=== PATIENT | male | born 1955 | race Caucasian/White ===

== ENCOUNTER 2017-03-25 13:03 | Inpatient (IN) | payer OTHER, MEDICARE ==
[~2017-03-25] VITALS: Ht 172.7 cm; Wt 84.4 kg
[~2017-03-25 13:03] MED LIST: ACTO30TA10 PO; AMLO5TAB2 PO; CITA20TA4 PO; GABA400C5 PO; GLUC4CHW CHEW; IBUP800T23 PO; LOSA50TA PO; METF1000 PO; TRAZ150T75 PO
[2017-03-25 13:30] VITALS: BP 145/78; PULSE 56; RESP 27; TEMP 97.8; O2SAT 98
[2017-03-25 14:00] VITALS: PULSE 56
[2017-03-25] MEDS: SODIUM CHLOR 0.9% 1000 ML INJ 1,000 ML IV SCH (14:05)
[2017-03-25] MEDS ORDERED: RESP: ALBUTEROL 2.5 MG/IPRATROPIUM 0.5 MG NEB (PRN) INH (14:15)
[2017-03-25] MEDS ORDERED: MISCELLANEOUS NURSING INFORMATION XX SCH (14:15)
[2017-03-25] MEDS ORDERED: CHLORHEXIDINE GLUCONATE 2 % 1 PACK (2 CLOTHS) TOP PRN (14:15)
--- NOTE | 2017-03-25 14:15 | HHI.HP ---
HPI Service Critical Care Medicine Primary Care Physician Non-Staff Admission Diagnosis Diagnosis: (1) Acute right arterial ischemic stroke, MCA (middle cerebral artery) Diagnosis: Principal (2) Type 2 diabetes mellitus Diagnosis: Secondary (3) Hypertension Diagnosis: Secondary (4) Tobacco abuse Diagnosis: Secondary (5) Renal failure Diagnosis: Secondary Chief Complaint: Acute R MCA ischemic stroke Travel History International Travel<30 Days: No Contact w/Intl Traveler <30 Da: No Traveled to Known Affected Are: No History of Present Illness Patient is a 62-year-old male with past medical history significant for type 2 diabetes poorly controlled, hypertension, tobacco abuse, possible history of TIA in the past who presented to the [place] emergency department with numbness and weakness to his left lower face, left arm, left leg starting about 2 hours prior to presentation. He gives a history of TIAs in the past. He is supposed to be on a baby aspirin but has not taken that recently. His blood pressure was 146/75. CT of the head was negative. Patient was evaluated by Dr. Melchor in the ED. After discussion with neurology Dr. Hernandez patient was deemed a good candidate for TPA. Patient was started on IV TPA per protocol and was transferred to [facility]. I evaluated the patient in the ICU. His left face numbness has started to resolve, otherwise he has 4 out of 5 power in the left upper extremity and lower extremity. NIH stroke scale was 6 similar to presentation, but TPA still infusing. Neurology Dr. Hernandez Review of Systems ROS Limitations: Other (as per HPI) Past Family Social History Allergies: Coded Allergies: Penicillin (Verified Allergy, Severe, 03/25/17) Uncoded Allergies: OPIODS (Allergy, Severe, Anaphylaxis, 03/25/17) Past Medical History Type 2 diabetes Hypertension Chronic back pain Tobacco abuse Past Surgical History Cholecystectomy Perry fundoplication Reported Medications Losartan (Losartan Potassium) 50 Mg Tab 50 Mg PO DAILY Glucose (Dextrose) 4 Gm Chew 4 Gm CHEW DIRECTED Actos (Pioglitazone HCl) 30 Mg Tab 30 Mg PO DAILY Metformin (Metformin HCl) 1,000 Mg Tab 1,000 Mg PO BID Amlodipine (Amlodipine Besylate) 5 Mg Tab 5 Mg PO DAILY Trazodone (Trazodone HCl) 150 Mg Tab 150 Mg PO HS Gabapentin 400 Mg Cap 400 Cap PO QID Citalopram (Citalopram Hydrobromide) 20 Mg Tab 20 Mg PO DAILY Ibuprofen 800 Mg Tab 800 Mg PO TID Active Ordered Medications Receiving IV TPA Family History Noncontributory Social History Smokes about a pack of cigarettes daily Occasional alcohol use Physical Exam Physical Exam GENERAL: Well-nourished, well-developed patient, anxious SKIN: Warm and dry. HEAD: Normocephalic and atraumatic. EYES: No injection or drainage. pupils equal ENT: No nasal drainage noted. No facial droop NECK: Supple, trachea midline. No meningeal signs CARDIOVASCULAR: Regular rate and rhythm. RESPIRATORY: Breath sounds equal bilaterally. No accessory muscle use. GASTROINTESTINAL: Abdomen soft, non-tender, nondistended. EXTREMITIES: No edema. NEUROLOGICAL: Awake and alert. Left arm and leg fall before 5 seconds against gravity, sensory symptoms improving Imaging CT head negative Assessment and Plan Assessment and Plan ASSESSMENT Acute R MCA stroke Renal failure Type 2 diabetes Hypertension Tobacco abuse PLAN: NEURO: -Receiving TPA per protocol -Follow post-TPA orders -CT of the head repeat in 24 hours -Check 2-D echo, carotid Doppler, B12 TSH folic acid levels, lipid profile -Target systolic blood pressure less than 180 RESP: -Nasal cannula oxygen if needed to keep SaO2 >90% -Aggressive pulmonary toilet -DuoNeb every 6 hours when necessary CV: -Normal saline IV fluids 84 ml per hour -Target systolic blood pressure less than 180, await 2d echo, carotid Doppler -Hold all home antihypertensives, and aspirin GI: -Nothing by mouth, IV Protonix : -Monitor renal function closely. Jaramillo catheter. -Creatinine is 1.6 unclear whether this is chronic or acute ID: -Monitor for infection HEME: -Monitor CBC, CMP, coags, fibrinogen ENDO: -Electrolyte replacement per protocol PROPH: -Bilateral lower extremity SCDs. No Chemical DVT prophylaxis until cleared by neurology. IV Protonix LINES: -Utilize peripheral IVs, central line if needed CC time 45 min PT/OT/ST consult in 24 hours. [facility] to assume care in am Code Status Full Discussed Condition With Dr. Melchor Problem Qualifiers (1) Type 2 diabetes mellitus: Nilda Chicas MD March 25, 2017 14:15
[2017-03-25] MEDS ORDERED: RESP: ALBUTEROL 2.5 MG/IPRATROPIUM 0.5 MG NEB (PRN) NEB (14:45)
[2017-03-25] MEDS ORDERED: GLUCAGON 1 MG/ML VIAL IM/SQ PRN (15:00)
[2017-03-25] MEDS ORDERED: DEXTROSE 50% IN WATER 50 ML VIAL(D50) IV PUSH PRN (15:00)
[2017-03-25] MEDS ORDERED: ENALAPRILAT 1.25 MG/ML VIAL IV PRN (15:00)
[2017-03-25] MEDS ORDERED: SODIUM CHLORIDE 0.9% FLUSH 10 ML FLUSH IV FLUSH PRN (15:00)
--- NOTE | 2017-03-25 15:33 | RADRPT ---
EXAM DATE/TIME: 03/25/2017 14:21 [facility] COMPARISON: No previous studies available for comparison. INDICATIONS : Short of breath, possible stroke MEDICAL HISTORY : asthma SURGICAL HISTORY : None. ENCOUNTER: Initial ACUITY: 1 day PAIN SCORE: 0/10 LOCATION: Bilateral chest FINDINGS: A single view of the chest demonstrates the lungs to be symmetrically aerated without evidence of mas s, infiltrate or effusion. The cardiomediastinal contours are unremarkable. Osseous structures are intact. CONCLUSION: No acute disease. Keith Rawls MD on March 25, 2017 at 15:31 Board Certified Radiologist. This report was verified electronically.
[2017-03-25 16:00] VITALS: BP 128/75; PULSE 52; RESP 29; TEMP 98.1; O2SAT 96
[2017-03-25] MEDS: INSULIN ASPART SUPPLEMENTAL SCALE SQ SCH ×2 (16:00→21:00)
[2017-03-25] MEDS ORDERED: niCARdipine INJ 25 MG in SODIUM CHLOR 0.9% 250 ML INJ 250 ML IV SCH (16:00)
--- NOTE | 2017-03-25 16:18 | MB ---
cc: MAGALIE GAFFNEY M.D. DATE OF 1955, 62 years old DATE OF CONSULTATION 03/25/2017 REASON FOR CONSULTATION Stroke alert. HISTORY OF THE PRESENT ILLNESS The patient is a 62-year-old man who presented to [facility] ER with onset of left-sided symptoms, trouble speaking. Diagnosed with possible right MCA stroke. DISCUSSION After discussion with the ED physician and myself it was decided that he should receive TPA. He was in the window of two hours. He did receive the TPA and now he is transferred to [facility]. Symptoms are nearly resolved. He states he still feels his speech a little bit off, but otherwise feels much better. The patient states that he was in his usual state of health at home trying to clear out a room when he started feeling funny, left-sided weakness and numbness in the arm and leg. He could not think straight. Called his , his came home and they drove to the ER in [place]. Hence, thereafter discussion with the ED physician, Dr. Melchor who decided to start him on TPA stat. Did have a CT there that I was informed was unremarkable as well as his labs. He is now in the ICU for completion of care and further workup. PAST MEDICAL HISTORY He has a past medical history of: 1. He states of diabetes but also has hypoglycemia. 2. He has a history also of chronic low back pain and neuropathy. 3. He has a history of hypertension and hyperlipidemia. MEDICATIONS h His home medications, he states that he does not take baby aspirin. 1. He states that he takes Gabapentin for his neuropathy. 2. Trazodone for his insomnia. 3. Two anti diabetic medications. Please refer to his MAR for further. I do not have the list with me at this time. ALLERGIES PENICILLIN. SOCIAL HISTORY He used to smoke, quit years ago, recently restarted again two years ago. Denies chronic alcohol use or drug abuse. He is a retired digital computer operator. PHYSICAL EXAMINATION VITAL SIGNS: The vitals have been stable thus far. GENERAL: He is awake and alert. NECK: Supple. No bruits. HEART: Regular. LUNGS: Clear. ABDOMEN: Soft EXTREMITIES: No edema. NEUROLOGIC: He is awake, alert. He is oriented. Pupils are reactive. Visual russ are normal. Face is symmetrical. Tongue is midline. Speech is clear. He is not dysarthric nor aphasic for me. Motor galicia, there is no drift or leg lag. Strength is symmetrical throughout. However, left toe is slightly upgoing. DTRs are trace to 1+. Sensory normal to all modalities. [id number] no past pointing. Gait is withdrawal. He is at bedrest. IMPRESSION A 62-year-old man with left hemiparesis likely due to MCA stroke on the right side. Recommend at this point in time a complete stroke workup. We will go ahead and get an MRI of the brain, MRA [place], carotid ultrasound, 2-D echo. No antiplatelets for 24 hours post TPA and at that point in time he can be started on aspirin. As DVT prophylaxis right now we will do SCDs and in 24 hours we gave him Lovenox. Check a lipid panel. PT, OT, speech therapy evaluation. Permissible hypertension. Risk factors modification. Further recommendations will be made accordingly. MD TUNDE Sanchez/MANAV /2:27 PM /3:54 PM
[2017-03-25 18:00] VITALS: PULSE 68
[2017-03-25 19:00] LABS: HDL CHOLESTEROL 45.7 MG/DL (40.0-60.0); LDL CHOLESTEROL 56 MG/DL (0-99)
[2017-03-25 20:00] VITALS: BP 133/74; PULSE 55; RESP 13; TEMP 97.7; O2SAT 97
[2017-03-25 22:00] VITALS: PULSE 55
[2017-03-25 22:10] LABS: HEMOGLOBIN A1a 0.9 %; HEMOGLOBIN A1b 2.1 %; HEMOGLOBIN Ao 84.1 %; HEMOGLOBIN LA1C 2.2 %
[2017-03-25] MEDS: SODIUM CHLORIDE 0.9% FLUSH 10 ML FLUSH IV FLUSH SCH (22:42)
--- NOTE | 2017-03-25 22:43 | RADRPT ---
EXAM DATE/TIME: 03/25/2017 21:49 [facility] COMPARISON: CT BRAIN W/O CONTRAST, March 25, 2017, 11:57. INDICATIONS : CVA. Post TPA. MEDICAL HISTORY : Hypertension. Arthritis. Hypercholesterolemia. Diabetes. SURGICAL HISTORY : Cholecystectomy. Perry fundoplication. ENCOUNTER: Subsequent ACUITY: 1 day PAIN SCORE: 0/10 LOCATION: cranial TECHNIQUE: Multiplanar, multisequence MRI of the brain was performed without contrast. FINDINGS: CEREBRUM: The ventricles are normal for age. No evidence of midline shift, mass lesion, hemorrhage or acute in farction. No extraaxial fluid collections are seen. The pituitary gland and suprasellar cistern are normal in configuration. WHITE MATTER: No significant signal abnormalities are seen in the white matter. POSTERIOR FOSSA: The cerebellum and brainstem are intact. The 4th ventricle is midline. The cerebellopontine angle is unremarkable. The cerebellar tonsils are normal in position. DIFFUSION IMAGING: No focal areas of restricted diffusion are seen. No evidence of acute infarction. EXTRACRANIAL: The visualized portions of the orbits and paranasal sinuses are unremarkable. CONCLUSION: Normal examination. Juan Francisco Khalil MD on March 25, 2017 at 22:39 Board Certified Radiologist. This report was verified electronically.
--- NOTE | 2017-03-25 22:44 | RADRPT ---
EXAM DATE/TIME: 03/25/2017 21:49 [facility] COMPARISON: No previous studies available for comparison. INDICATIONS : CVA. Post TPA. MEDICAL HISTORY : Hypertension. Arthritis. Hypercholesterolemia. Diabetes. SURGICAL HISTORY : Cholecystectomy. Perry fundoplication. ENCOUNTER: Subsequent ACUITY: 1 day PAIN SCORE: 0/10 LOCATION: cranial Please note a normal MRA of the brain does not entirely exclude the possibility of a small aneurysm, nor the possibility of distal intracranial vessel disease. TECHNIQUE: 3D time of flight MRA was performed. Source images, multiplanar STS MIP, and 3D volume MIP reconstru ctions were reviewed. FINDINGS: There is excellent visualization of the major intracranial arteries out to the second-order branch ve ssels. There is no evidence for aneurysm, vessel truncation or stenosis, and no evidence for vascula r malformation. CONCLUSION: Normal examination. Juan Francisco Khalil MD on March 25, 2017 at 22:42 Board Certified Radiologist. This report was verified electronically.
[2017-03-26] VITALS (9 sets, daily range): BP systolic 115–157; BP diastolic 70–96; PULSE 56–64; RESP 12–21; TEMP 97.8–98.5; O2SAT 92–99
[2017-03-26] MEDS: SODIUM CHLOR 0.9% 1000 ML INJ 1,000 ML IV SCH (02:28)
[2017-03-26] MEDS ORDERED: CHLORHEXIDINE GLUCONATE 2 % 1 PACK (2 CLOTHS) TOP SCH (04:00)
[2017-03-26] MEDS: INSULIN ASPART SUPPLEMENTAL SCALE SQ SCH ×3 (06:49→16:00)
[2017-03-26] MEDS: SODIUM CHLORIDE 0.9% FLUSH 10 ML FLUSH IV FLUSH SCH (07:17)
[2017-03-26] MEDS ORDERED: PANTOPRAZOLE SODIUM 40 MG VIAL IV SCH (09:00)
--- NOTE | 2017-03-26 10:37 | RADRPT ---
EXAM DATE/TIME: 03/26/2017 08:16 [facility] COMPARISON: No previous studies available for comparison. INDICATIONS : Cerebrovascular accident. MEDICAL HISTORY : Diabetes mellitus type 2. Hypertension. Chronic back pain. Acute right MCA stroke. SURGICAL HISTORY : Cholecystectomy. Perry fundoplication. ENCOUNTER: Initial ACUITY: 2 days PAIN SCORE: 0/10 LOCATION: Bilateral neck PEAK SYSTOLIC VELOCITIES (cm/sec): ICA/CCA RATIO: Right: 0.9 Left: 0.6 ICA: Right: 82 Left: 68 CCA: Right: 94 Left: 109 ECA: Right: 92 Left: 101 VERTEBRAL: Right: 57 antegrade Left: 45 antegrade Elevated flow velocities and ICA/CCA ratios have been found to correlate with increased degrees of vessel stenosis, calculated as percentage of diameter relative to a normal segment of distal ICA/CCA FINDINGS: RIGHT CAROTID: No significant stenosis is visualized. The waveforms are within normal limits. LEFT CAROTID: No significant stenosis is visualized. The waveforms are within normal limits. VERTEBRAL ARTERIES: Antegrade flow is seen in both vertebral arteries. MISCELLANEOUS: Right lobe thyroid nodules are present. This can be further evaluated with dedicated thyroid sonograp hy. CONCLUSION: No evidence of flow-limiting carotid stenosis. Thyroid nodules. Recommend further evaluation with thyroid ultrasound Juan Francisco Kapoor MD on March 26, 2017 at 10:22 Board Certified Radiologist. This report was verified electronically.
[2017-03-26 14:28] LABS: AUTOMATED NEUTROPHIL # 6.4 TH/MM3 (1.8-7.7); BASOPHIL # 0.1 TH/MM3 (0-0.2); EOSINOPHIL # 0.3 TH/MM3 (0-0.4); EOSINOPHIL % 3.5 % (0.0-4.0); HEMATOCRIT 38.7 % (39.0-51.0); HEMO FLAGS DIFF FINAL; LYMPH % 20.5 % (9.0-44.0); LYMPHOCYTE # 1.9 TH/MM3 (1.0-4.8); MEAN CORPUSCULAR HEMOGLOBIN 28.3 PG (27.0-34.0); MEAN CORPUSCULAR HGB CONC 34.1 % (32.0-36.0); MONO % 5.8 % (0.0-8.0); NEUT % 69.2 % (16.0-70.0); PLATELET COUNT 221 TH/MM3 (150-450); RED BLOOD COUNT 4.66 MIL/MM3 (4.50-5.90); RED CELL DISTRIBUTION WIDTH 14.2 % (11.6-17.2); WHITE BLOOD COUNT 9.3 TH/MM3 (4.0-11.0)
[2017-03-26 14:55] LABS: ALT (GPT) 26 U/L (12-78); ANION GAP 6 MEQ/L (5-15); AST (GOT) 19 U/L (15-37); BICARBONATE 27.4 MEQ/L (21.0-32.0); BLOOD UREA NITROGEN 15 MG/DL (7-18); CHLORIDE 106 MEQ/L (98-107); GLOMERULAR FILTRATION RATE 64 ML/MIN (>89); POTASSIUM 3.7 MEQ/L (3.5-5.1); SODIUM (NA) 139 MEQ/L (136-145)
[2017-03-26 15:02] LABS: ALKALINE PHOSPHATASE 68 U/L (45-117); TOTAL BILIRUBIN ADULT 0.3 MG/DL (0.2-1.0)
--- NOTE | 2017-03-26 16:53 | HHI.PR ---
Subjective Remarks doing well no new deficits s/p testing. awaits echo results. Objective Vital Signs Date Time Temp Pulse Resp B/P Pulse Ox O2 Delivery O2 Flow Rate FiO2 03/26/17 14:00 64 03/26/17 12:00 64 03/26/17 12:00 98.1 56 14 124/77 97 03/26/17 10:00 64 03/26/17 08:00 98.5 64 12 115/70 92 03/26/17 08:00 64 03/26/17 06:00 59 03/26/17 04:00 97.8 61 21 143/73 95 03/26/17 04:00 61 03/26/17 02:00 61 03/26/17 00:00 60 03/26/17 00:00 98.1 56 14 144/73 95 03/25/17 22:00 55 03/25/17 20:00 55 03/25/17 20:00 97.7 55 13 133/74 97 03/25/17 18:00 68 I/O 03/25/17 03/25/17 03/25/17 03/26/17 03/26/17 03/26/17 07:00 15:00 23:00 07:00 15:00 23:00 Intake Total 120 ml 693 ml 693 ml 620 ml Output Total 100 ml 593 ml 375 ml 400 ml Balance 20 ml 100 ml 318 ml 220 ml Intake Oral 20 ml 100 ml 320 ml IV Total 100 ml 593 ml 693 ml 300 ml Output Urine Total 100 ml 593 ml 375 ml 400 ml # Bowel Movements 0 awake alert nad perrla neck no bruits heart rrr s1 s2 no mrg speech nl motor no weakness gait nl Result Diagram: 03/26/17 1405 03/26/17 1405 Imaging mri brain neg mra cow neg cus neg echo result pending lipids reviewed Assessment and Plan Assessment and Plan s/p right mca infarct -start 81mg asa tonight then qd. should start b12 1000mcg po qd and recheck in 4 weeks level was 336 dm control hga1c 6.3 cont statin outpt 24 h holter smoking cessation. -ok to d/c tonight per neuro-d/w pt take it easy for a week and f/u with me in 2 -3 weeks and pcp in 1 week. Sun Hernandez MD March 26, 2017 16:53
[2017-03-26] MEDS ORDERED: ASPI81CH CHEW (17:08)
--- NOTE | 2017-03-26 17:14 | HHI.DS ---
Discharge Summary Admission Date March 25, 2017 at 13:13 Discharge Date: March 26, 2017 Admitting Diagnosis CVA (1) Acute right arterial ischemic stroke, MCA (middle cerebral artery) ICD Code: I63.511 Diagnosis: Principal (2) Type 2 diabetes mellitus ICD Code: E11.9 Diagnosis: Secondary (3) Hypertension ICD Code: I10 Diagnosis: Secondary (4) Tobacco abuse ICD Code: Z72.0 Diagnosis: Secondary (5) Renal failure ICD Code: N19 Diagnosis: Secondary Procedures TPA Brief History - From Admission Patient is a 62-year-old male with past medical history significant for type 2 diabetes poorly controlled, hypertension, tobacco abuse, possible history of TIA in the past who presented to the [place] emergency department with numbness and weakness to his left lower face, left arm, left leg starting about 2 hours prior to presentation. He gives a history of TIAs in the past. He is supposed to be on a baby aspirin but has not taken that recently. His blood pressure was 146/75. CT of the head was negative. Patient was evaluated by Dr. Melchor in the ED. After discussion with neurology Dr. Hernandez patient was deemed a good candidate for TPA. Patient was started on IV TPA per protocol and was transferred to [facility]. I evaluated the patient in the ICU. His left face numbness has started to resolve, otherwise he has 4 out of 5 power in the left upper extremity and lower extremity. NIH stroke scale was 6 similar to presentation, but TPA still infusing. Neurology Dr. Hernandez CBC/BMP: 03/26/17 1405 03/26/17 1405 Significant Findings Laboratory Tests Test 03/25/17 03/26/17 17:30 14:05 Hemoglobin A1c 6.3 % (4.3-6.0) Triglycerides Level 152 MG/DL (42-150) Hematocrit 38.7 % (39.0-51.0) Estimat Glomerular Filtration 64 ML/MIN (>89) Rate Random Glucose 164 MG/DL (74-106) Calcium Level 8.4 MG/DL (8.5-10.1) Imaging Last Impressions Carotid Artery Ultrasound 5/3/17 0000 Signed Impressions: Service Date/Time: Sunday, March 26, 2017 08:16 - CONCLUSION: No evidence of flow-limiting carotid stenosis. Thyroid nodules. Recommend further evaluation with thyroid ultrasound Juan Francisco Kapoor MD Head Magnetic Resonance Angiography 03/25/17 Signed Impressions: Service Date/Time: Saturday, March 25, 2017 21:49 - CONCLUSION: Normal examination. Juan Francisco Khalil MD Chest X-Ray 03/25/17 Signed Impressions: Service Date/Time: Saturday, March 25, 2017 14:21 - CONCLUSION: No acute disease. Keith Rawls MD Brain MRI 03/25/17 Signed Impressions: Service Date/Time: Saturday, March 25, 2017 21:49 - CONCLUSION: Normal examination. Juan Francisco Khalil MD PE at Discharge GENERAL: NAD, A&Ox3 SKIN: Warm and dry. HEAD: Normocephalic. EYES: No scleral icterus. No injection or drainage. NECK: Supple, trachea midline. No JVD or lymphadenopathy. CARDIOVASCULAR: Regular rate and rhythm without murmurs, gallops, or rubs. RESPIRATORY: Breath sounds equal bilaterally. No accessory muscle use. GASTROINTESTINAL: Abdomen soft, non-tender, nondistended. MUSCULOSKELETAL: No cyanosis, or edema. BACK: Nontender without obvious deformity. No CVA tenderness. Hospital Course Mr. Cardoza is a 62 year old male. He is here due to CVA symptoms and a right MCA ischemic stroke as the cause. He had TPA and has had full resolution of his symptoms. Carotid ultrasound, MRA, MRI and Echocardiogram do not show pathology. He did well with PT, OT, and ST. No further rehab needed. He has returned to his prior functional status. A daily aspirin and statin and provided for CVA prevention. He desires discharge today and is medically stable for discharge to home. Pt Condition on Discharge: Stable Discharge Disposition: Discharge Home Discharge Time: <= 30 minutes Discharge Instructions DIET: Follow Instructions for: Diabetic Diet Speech Therapy-Diet Recommends: Regular Activities you can perform: Regular-No Restrictions Follow up Referrals: Neurology - 2 Weeks with Sun Hernandez MD PCP Follow-up - 1 Week New Medications: Aspirin (Aspirin) 81 Mg Chew 162 MG CHEW DAILY Blood Clot Prevention #30 Ref 0 TAB Atorvastatin (Lipitor) 40 Mg Tab 40 MG PO HS Cholesterol Management #30 Ref 0 TAB Continued Medications: Amlodipine (Amlodipine) 5 Mg Tab 5 MG PO DAILY Blood Pressure Management Ref 0 TAB Citalopram (Citalopram) 20 Mg Tab 20 MG PO DAILY Control Depression Ref 0 TAB Dextrose (Glucose) 4 Gm Chew 4 GM CHEW DIRECTED Blood Sugar Management Ref 0 TAB Gabapentin (Gabapentin) 400 Mg Cap 400 CAP PO QID Ref 0 CAP Ibuprofen (Ibuprofen) 800 Mg Tab 800 MG PO TID Arthritis Pain Ref 0 TAB Losartan (Losartan) 50 Mg Tab 50 MG PO DAILY Blood Pressure Management Ref 0 TAB Metformin (Metformin) 1,000 Mg Tab 1000 MG PO BID With meals Blood Sugar Management Ref 0 TAB Pioglitazone (Actos) 30 Mg Tab 30 MG PO DAILY Blood Sugar Management Ref 0 TAB Trazodone (Trazodone) 150 Mg Tab 150 MG PO HS Control Depression Ref 0 TAB Jose Garrett MD March 26, 2017 17:14
[2017-03-26] MEDS ORDERED: LIPI40TA PO (17:15)
== END 2017-03-26 20:44 | disposition home or self-care (01) | DRG 62 ==
LOC: NEDDLT 13:03 → N03A 13:13 → N05B 03-26 16:45
PROVIDERS: ADMIT Hospitalist; ATTEND Hospitalist
DX: I63.511 Cerebral infarction due to unspecified occlusion or stenosis of right middle cerebral artery (principal); G81.94 Hemiplegia, unspecified affecting left nondominant side; N19 Unspecified kidney failure; R20.0 Anesthesia of skin; Z79.84 Long term (current) use of oral hypoglycemic drugs; I10 Essential (primary) hypertension; E11.9 Type 2 diabetes mellitus without complications; G62.9 Polyneuropathy, unspecified; Z87.891 Personal history of nicotine dependence
CPT/HCPCS: 51702; 70450; 70544; 70551; 71010; 80048; 80053; 80061; 80307; 81001; 82550; 82552; 82607; 82948; 83036; 83735; 84443; 84484; 85025; 85384; 85610; 85730; 86850; 86900; 86901; 87641; 93005; 93306; 93880; 96374; 99281; C9113; J2997; J7030

== ENCOUNTER 2017-09-02 19:57 | Observation (INO) | payer MEDICARE, OTHER ==
[~2017-09-02 19:57] MED LIST changes: +ASPI81CH CHEW; +LIPI40TA PO; +MAGNESIUM HYDROXIDE SUSP 30 ML CUP PO PRN; +NALOXONE HCL 0.4 MG/ML AMP IV PUSH PRN; +ONDANSETRON HCL 4 MG/2 ML VIAL IVP PRN; +SODIUM CHLORIDE 0.9% FLUSH 10 ML FLUSH IV FLUSH PRN; +TAMS5CAP PO
[2017-09-02 20:00] VITALS: BP 142/81; PULSE 58; RESP 20; TEMP 97.4; O2SAT 98
[2017-09-02] MEDS: SODIUM CHLORIDE 0.9% FLUSH 10 ML FLUSH IV FLUSH SCH (21:00)
[2017-09-03] VITALS: BP 163/89; PULSE 58; RESP 20; TEMP 97.4; O2SAT 99
[2017-09-03 04:00] VITALS: BP 148/95; PULSE 55; RESP 20; TEMP 96.8; O2SAT 95
[2017-09-03 06:18] LABS: AUTOMATED NEUTROPHIL # 4.5 TH/MM3 (1.8-7.7); BASOPHIL # 0.1 TH/MM3 (0-0.2); BASOPHIL % 0.8 % (0.0-2.0); EOSINOPHIL # 0.5 TH/MM3 (0-0.4); EOSINOPHIL % 5.9 % (0.0-4.0); HEMATOCRIT 40.4 % (39.0-51.0); HEMO FLAGS DIFF FINAL; LYMPH % 25.5 % (9.0-44.0); MEAN CELL VOLUME 85.9 FL (80.0-100.0); MEAN CORPUSCULAR HEMOGLOBIN 27.6 PG (27.0-34.0); MEAN CORPUSCULAR HGB CONC 32.2 % (32.0-36.0); MONO % 7.2 % (0.0-8.0); NEUT % 60.6 % (16.0-70.0); PLATELET COUNT 219 TH/MM3 (150-450); RED BLOOD COUNT 4.71 MIL/MM3 (4.50-5.90); RED CELL DISTRIBUTION WIDTH 13.5 % (11.6-17.2); WHITE BLOOD COUNT 7.7 TH/MM3 (4.0-11.0)
[2017-09-03 06:24] LABS: CHLORIDE 103 MEQ/L (98-107); SODIUM (NA) 138 MEQ/L (136-145)
[2017-09-03 06:31] LABS: ANION GAP 8 MEQ/L (5-15); BICARBONATE 27.2 MEQ/L (21.0-32.0); BLOOD UREA NITROGEN 18 MG/DL (7-18)
[2017-09-03 06:32] LABS: ALT (GPT) 31 U/L (12-78); AST (GOT) 17 U/L (15-37)
[2017-09-03 06:33] LABS: TOTAL BILIRUBIN ADULT 0.5 MG/DL (0.2-1.0)
[2017-09-03 06:34] LABS: GLOMERULAR FILTRATION RATE 61 ML/MIN (>89)
[2017-09-03 06:35] LABS: ALKALINE PHOSPHATASE 65 U/L (45-117)
[2017-09-03 08:00] VITALS: BP 156/90; PULSE 56; RESP 16; TEMP 97; O2SAT 96
--- NOTE | 2017-09-03 08:16 | RADRPT ---
EXAM DATE/TIME: 09/03/2017 12:46 [facility] COMPARISON: US CAROTID ARTERIES, March 26, 2017, 8:16. INDICATIONS : Transient ischemic attack. MEDICAL HISTORY : Hypertension. Hypercholesterolemia. Asthma. Gallbladder disease. Hernia, hiatal. Arthritis. Di abetes. SURGICAL HISTORY : Cholecystectomy. Perry fundiplication. ENCOUNTER: Subsequent ACUITY: 1 day PAIN SCORE: 3/10 LOCATION: Bilateral neck PEAK SYSTOLIC VELOCITIES (cm/sec): ICA/CCA RATIO: Right: 0.9 Left: 0.7 ICA: Right: 80 Left: 83 CCA: Right: 89 Left: 120 ECA: Right: 53 Left: 71 VERTEBRAL: Right: 57 antegrade Left: 43 antegrade Elevated flow velocities and ICA/CCA ratios have been found to correlate with increased degrees of vessel stenosis, calculated as percentage of diameter relative to a normal segment of distal ICA/CCA FINDINGS: RIGHT CAROTID: No significant stenosis is visualized. The waveforms are within normal limits. LEFT CAROTID: No significant stenosis is visualized. The waveforms are within normal limits. VERTEBRAL ARTERIES: Antegrade flow is seen in both vertebral arteries. MISCELLANEOUS: None. CONCLUSION: 1. No significant flow-limiting carotid stenosis. 2. Antegrade vertebral artery flow bilaterally. Fidel Mejía MD on September 03, 2017 at 8:12 Board Certified Radiologist. This report was verified electronically.
--- NOTE | 2017-09-03 09:30 | HHI.HP ---
HPI Service [facility] Primary [facility] Physician Non-Staff Admission Diagnosis Diagnoses: (1) Left-sided weakness Diagnosis: Principal Chief Complaint: Left-sided weakness Travel History International Travel<30 Days: No Contact w/Intl Traveler <30 Da: No Traveled to Known Affected Are: No History of Present Illness Written by Maurice Haynes, acting as scribe for Dr. Garrett on 09/03/17 at 09 :17. 62-year-old male with known history of hypertension, hyperlipidemia, diabetes, posttraumatic stress disorder, history of CVA/TIA, anxiety, depression , chronic back pain with herniated disc, neuropathy who presented to hospital because of recurrent neurological symptoms. Patient states that since his discharge in March 2017 from his previous CVA that required TPA he has been experiencing neurological symptoms approximately every 2 months where he would have episode of left-sided numbness and weakness which the last anywhere from 5- 10 minutes at a time. Patient had another episode yesterday at approximately 10 :30 AM and after 30 minutes the episode did not resolve so he called the ambulance and he was taken to the ER in [place]. Patient states that his symptoms resolved by 3 PM yesterday afternoon. He has not had any reoccurrence since then. Patient does continue to take aspirin 81 mg daily. He does continue to smoke cigarettes. He has not followed up with a neurologist since his last admission because he indicates that there are no local neurologist where he lives to follow-up. Patient denies any headache, visual disturbances, dysphagia, facial droop, speech difficulties. During that numbness/weakness episodes he does have to concentrate more on ambulating. Review of Systems Neurologic: COMPLAINS OF: Localized weakness Except as stated in HPI: all other systems reviewed are Neg Past Family Social History Past Medical History Hypertension Hyperlipidemia History CVA Diabetes Herniated disc of cervical lumbar spine Posttraumatic stress syndrome Tobacco use Sleep apnea Anxiety depression Past Surgical History Cholecystectomy Perry fundoplication Lasik eye surgery Reported Medications Reported Meds & Active Scripts Active Flomax (Tamsulosin HCl) 0.4 Mg Cap 0.4 Mg PO HS Lipitor (Atorvastatin Calcium) 40 Mg Tab 40 Mg PO HS Aspirin 81 Mg Chew 162 Mg CHEW DAILY Reported Losartan (Losartan Potassium) 50 Mg Tab 50 Mg PO DAILY Glucose (Dextrose) 4 Gm Chew 4 Gm CHEW DIRECTED Actos (Pioglitazone HCl) 30 Mg Tab 30 Mg PO DAILY Metformin (Metformin HCl) 1,000 Mg Tab 1,000 Mg PO BID With meals Amlodipine (Amlodipine Besylate) 5 Mg Tab 5 Mg PO DAILY Trazodone (Trazodone HCl) 150 Mg Tab 150 Mg PO HS Gabapentin 400 Mg Cap 400 Cap PO QID Citalopram (Citalopram Hydrobromide) 20 Mg Tab 20 Mg PO DAILY Ibuprofen 800 Mg Tab 800 Mg PO TID Allergies: Coded Allergies: penicillin G (Unverified Allergy, Severe, 07/08/17) Uncoded Allergies: OPIODS (Allergy, Severe, Anaphylaxis, 03/25/17) Family History Reviewed and is significant for mother requiring liver transplant, father with underlying mental issues, bladder cancer Social History Patient is smoking three quarters cigarettes a day for the last 2-1/2 years. Previously he did smoke from age [age]. Does drink alcohol occasionally. Denies any illicit drugs. Physical Exam Vital Signs Vital Signs Date Time Temp Pulse Resp B/P (MAP) Pulse Ox O2 Delivery O2 Flow Rate FiO2 09/03/17 08:00 97.0 56 16 156/90 (112) 96 09/03/17 04:00 96.8 55 20 148/95 (112) 95 09/03/17 00:00 97.4 58 20 163/89 (113) 99 09/02/17 20:00 97.4 58 20 142/81 (101) 98 Physical Exam GENERAL: Well-developed, well-nourished, in no acute distress. alert and orientated HEENT: Head is normocephalic without any lesions or masses noted. Facial features are symmetric. Eyes: Pupils equal round reactive to light. Extraocular muscles are intact. Conjunctivae were clear. Oropharyngeal: Pharynx without any erythema edema. Tongue is midline without deviation. Buccal mucosa is moist without any masses or lesions NECK: Supple without any masses. Trachea midline no deviation. No JVD, no bruits are appreciated CARDIAC: Regular rhythm, regular rate. S1/S2 are heard. No murmurs gallops or rubs. LUNGS: Clear to auscultation bilaterally. No wheeze, rhonchi or rales. No use of accessory muscles on inspiration or expiration. ABDOMEN: Soft, nontender. Nondistended. Bowel sounds heard in all 4 quadrants. No organomegaly or masses. Negative rebound, negative guarding EXTREMITIES: No edema, pulses are equal bilaterally. No cyanosis or clubbing NEUROLOGY: Mood and affect appear appropriate. Cranial nerves II through XII grossly intact. Muscle strength 5/5 in upper and lower extremities bilaterally. Deep tendon reflexes are 2+ in upper and lower extremities bilaterally. Laboratory Laboratory Tests Test 09/03/17 05:25 White Blood Count 7.7 Red Blood Count 4.71 Hemoglobin 13.0 Hematocrit 40.4 Mean Corpuscular Volume 85.9 Mean Corpuscular Hemoglobin 27.6 Mean Corpuscular Hemoglobin Concent 32.2 Red Cell Distribution Width 13.5 Platelet Count 219 Mean Platelet Volume 9.3 Neutrophils (%) (Auto) 60.6 Lymphocytes (%) (Auto) 25.5 Monocytes (%) (Auto) 7.2 Eosinophils (%) (Auto) 5.9 Basophils (%) (Auto) 0.8 Neutrophils # (Auto) 4.5 Lymphocytes # (Auto) 2.0 Monocytes # (Auto) 0.6 Eosinophils # (Auto) 0.5 Basophils # (Auto) 0.1 CBC Comment DIFF FINAL Differential Comment Blood Urea Nitrogen 18 Creatinine 1.20 Random Glucose 104 Total Protein 7.2 Albumin 3.7 Calcium Level 8.5 Alkaline Phosphatase 65 Aspartate Amino Transf (AST/SGOT) 17 Alanine Aminotransferase (ALT/SGPT) 31 Total Bilirubin 0.5 Sodium Level 138 Potassium Level 4.0 Chloride Level 103 Carbon Dioxide Level 27.2 Anion Gap 8 Estimat Glomerular Filtration Rate 61 Result Diagram: 09/03/17 0525 09/03/17 0525 Imaging Last Impressions Carotid Artery Ultrasound 09/03/17 0000 Signed Impressions: Service Date/Time: Sunday, September 03, 2017 12:46 - CONCLUSION: 1. No significant flow-limiting carotid stenosis. 2. Antegrade vertebral artery flow bilaterally. MD Lisa Tinoco VTE Risk Assessment Lisa VTE Risk Assessment: Mod/High Risk (score >= 2) Caprini Risk Assessment Model Point Value = 1 Point Value = 2 Point Value = 3 Point Value = 5 Age 41-60 Minor surgery BMI > 25 kg/m2 Swollen legs Varicose veins or History of unexplained or recurrent spontaneous Oral contraceptives or hormone replacement Sepsis (< 1 month) Serious lung disease, including pneumonia (< 1 month) Abnormal pulmonary function Acute myocardial infarction Congestive heart failure (< 1 month) History of inflammatory bowel disease Medical patient at bed rest Age 61-74 Arthroscopic surgery Major open surgery (> 45 min) Laparoscopic surgery (> 45 min) Malignancy Confined to bed (> 72 hours) Immobilizing plaster cast Central venous access Age >= 75 History of VTE Family history of VTE Factor V Leiden Prothrombin [id number] Lupus anticoagulant Anticardiolipin antibodies Elevated serum homocysteine Heparin-induced thrombocytopenia Other congenital or acquired thrombophilia Stroke (< 1 month) Elective arthroplasty Hip, pelvis, or leg fracture Acute spinal cord injury (< 1 month) Prophylaxis Regimen Total Risk Factor Score Risk Level Prophylaxis Regimen 0-1 Low Early ambulation 2 Moderate Order ONE of the following: *Sequential Compression Device (SCD) *Heparin 5000 units SQ BID 3-4 Higher Order ONE of the following medications: *Heparin 5000 units SQ TID *Enoxaparin/Lovenox 40 mg SQ daily (WT < 150 kg, CrCl > 30 mL/min) *Enoxaparin/Lovenox 30 mg SQ daily (WT < 150 kg, CrCl > 10-29 mL/min) *Enoxaparin/Lovenox 30 mg SQ BID (WT < 150 kg, CrCl > 30 mL/min) AND/OR *Sequential Compression Device (SCD) 5 or more Highest Order ONE of the following medications: *Heparin 5000 units SQ TID (Preferred with Epidurals) *Enoxaparin/Lovenox 40 mg SQ daily (WT < 150 kg, CrCl > 30 mL/min) *Enoxaparin/Lovenox 30 mg SQ daily (WT < 150 kg, CrCl > 10-29 mL/min) *Enoxaparin/Lovenox 30 mg SQ BID (WT < 150 kg, CrCl > 30 mL/min) AND *Sequential Compression Device (SCD) Assessment and Plan Assessment and Plan Left-sided weakness and a patient with known history of CVA/TIA CT the head is unremarkable for any acute abnormality Carotid ultrasound does not indicate any significant flow-limiting carotid stenosis. Antegrade vertebral artery flow bilaterally Awaiting MRI/MRA of the brain Physical therapy evaluation Awaiting MRI study for further recommendations, will anticipate increasing anticoagulation to aspirin 160 mg daily and possible addition of Plavix 75 mg daily Hypertension We'll continue permissive hypertension at this time Resume home medications 48 hours after onset of symptoms Hyperlipidemia LDL 56 on 03/25/17 Continue statin Diabetes Hemoglobin A1c 6.3 on 03/25/17 Accu-Cheks with sliding scale insulin Chronic back pain with neuropathy Resume home medications Posttraumatic stress disorder, and anxiety, depression Continue home medications DVT prevention Sequential compression devices This note was transcribed by scribe [Maurice Haynes]. I, Dr. Jose Garrett personally performed the history, physical exam, and medical decision making; and confirmed the accuracy of the information in the transcribed note. Authenticated by Dr. Jose Garrett on 09/03/17 at 11:26. Maurice Haynes Sep 03, 2017 09:30 Jose Garrett MD Sep 03, 2017 11:26
[2017-09-03 09:45] VITALS: PULSE 65
[2017-09-03] MEDS: SODIUM CHLORIDE 0.9% FLUSH 10 ML FLUSH IV FLUSH SCH (09:50)
[2017-09-03] MEDS ORDERED: PLAV75TA29 PO (11:29)
[2017-09-03] MEDS ORDERED: DEXTROSE 50% IN WATER 50 ML VIAL(D50) IV PUSH PRN (11:30)
[2017-09-03] MEDS ORDERED: GLUCAGON 1 MG/ML VIAL OTHER PRN (11:30)
[2017-09-03 12:00] VITALS: BP 129/70; PULSE 56; RESP 16; TEMP 97.4; O2SAT 98
[2017-09-03] MEDS ORDERED: INSULIN ASPART SUPPLEMENTAL SCALE SQ SCH (12:00)
== END 2017-09-03 13:32 | disposition home or self-care (01) ==
LOC: PHEDDLT 19:57 → PH3A 19:58
PROVIDERS: ADMIT Hospitalist; ATTEND Hospitalist
DX: R53.1 Weakness (principal); I10 Essential (primary) hypertension; E78.5 Hyperlipidemia, unspecified; E11.40 Type 2 diabetes mellitus with diabetic neuropathy, unspecified; J45.909 Unspecified asthma, uncomplicated; M54.9 Dorsalgia, unspecified; G89.29 Other chronic pain; G47.30 Sleep apnea, unspecified; F43.10 Post-traumatic stress disorder, unspecified; F32.9 Major depressive disorder, single episode, unspecified; F41.9 Anxiety disorder, unspecified; F17.210 Nicotine dependence, cigarettes, uncomplicated; M19.90 Unspecified osteoarthritis, unspecified site; Z86.73 Personal history of transient ischemic attack (TIA), and cerebral infarction without residual deficits; Z79.82 Long term (current) use of aspirin; Z79.899 Other long term (current) drug therapy; Z79.84 Long term (current) use of oral hypoglycemic drugs
CPT/HCPCS: 70450; 71010; 80053; 81001; 84484; 85025; 85610; 85730; 93005; 93880; 99281; 99285; G0378; G8987-GP; G8988-GP